=== PATIENT | female | born 1945 | race Caucasian/White ===

== ENCOUNTER 2017-04-21 10:22 | Outpatient (CLI) ==
--- NOTE | 2017-04-21 10:54 | DI ---
EXAM: Three views of the left foot. History: Left foot trauma. Findings: No acute fracture or dislocation. No radiopaque foreign bodies. Moderate degenerate bradley ges are seen at the mid foot with a few prominent dorsal osteophytes. Impression: No acute osseous abnormality
== END 2017-04-21 10:23 | disposition home or self-care (01) ==
LOC: RAD 10:22
PROVIDERS: ATTEND Family Medicine
DX: M79.672 Pain in left foot (principal)

== ENCOUNTER 2017-08-22 09:56 | Outpatient (CLI) ==
--- NOTE | 2017-08-22 13:42 | DI ---
EXAM: Lumbar spine three views HISTORY: Right-sided sciatica. FINDINGS: No comparison. Bone density appears diffusely decreased. There is mild scoliosis convex t o the left. Sacroiliac joints are within normal limits. There is moderate to severe degenerative di sc and facet disease most noted mid spine through S1. No spondylolisthesis or loss of vertebral body height. No acute fracture is seen. Vascular calcifications are noted. IMPRESSION: Diffuse moderate to severe degenerative changes of the spine. Sacroiliac joints proper are grossly w ithin normal limits.
--- NOTE | 2017-08-22 13:46 | DI ---
EXAM: RIGHT HIP, 2 VIEWS HISTORY: Sciatica, right side FINDINGS: There is moderate hip osteoarthritis. The current exam suggests some degree of osteoarthr itis of the lower synovial portion of the right sacroiliac joint. Bone density appears diffusely dec reased. No fracture or dislocation. IMPRESSION: Moderate hip osteoarthritis. Early arthropathy of the right sacroiliac joint.
--- NOTE | 2017-08-22 13:46 | DI ---
Exam: Single x-ray of the pelvis. Comparison: None available. Reason for exam: Sciatica. FINDINGS: The pelvic ring appears intact. No acute fracture or dislocation is seen in either hip. T here is moderate degenerative disease in both hips with joint space narrowing and osteophyte formatio n. Impression: 1. No acute fracture or dislocation is seen in the pelvic ring or either hip. 2. Moderate degenerative disease bilaterally with osteophyte formation and joint space narrowing
== END 2017-08-22 09:57 | disposition home or self-care (01) ==
LOC: RAD 09:56
PROVIDERS: ATTEND Family Medicine
DX: M76.891 Other specified enthesopathies of right lower limb, excluding foot (principal); M54.31 Sciatica, right side

== ENCOUNTER 2017-09-22 12:56 | Outpatient (CLI) ==
--- NOTE | 2017-09-23 10:03 | MRI ---
EXAM: MRI lumbar spine without IV contrast. DATE: 09/22/2017. HISTORY: Low back pain with right-sided sciatica. TECHNIQUE: Sagittal and axial T1W and T2W sequences of the lumbar spine along with sagittal IR and c oronal T2W sequences were obtained using 1.2 Susan magnet. No IV contrast. COMPARISON: LS spine series 08/22/2017. Bilateral renal ultrasound 08 November 2015. FINDINGS: There are five hei-xek-[id number] lumbar vertebra. Mild leftward curvature of the lower thor acic and lumbar spine is present. Tamzgypn-[id number] osteophytes are visible throughout the lower tho racic and lumbar spine. A 3 mm left lateral subluxation of L4 relative to L5 is noted. The no other subluxation, acute fracture, focal malignancy, or pars interarticularis defect is demonstrated. T1W bone marrow signal is similar to that of the intervertebral discs and paraspinal muscles. T2W/IR consuelo ne marrow signal is darker than typically seen. T2W/T1W bright, 6 mm focus in the T11 vertebral body is likely benign hemangioma. Marked L3-4, marked L4-5, and mild L5-S1 disc space narrowing is detec amina. No acute sacral fracture or stress reaction is apparent. Small anterior osteophytes are visibl e at each SI joint. Conus medullaris terminates at T12-L1. Visible spinal cord is normal. A T2W/T1W intermediate signal, the 14 x 10 mm right retrocrural focus is identified on the axial imag e #1. A left periaortic lymph node measuring 13 x 15 mm is observed on image #16. Bilateral obturat or chain lymphadenopathy is evident, with conglomerate lymph node mass measuring approximately 3 x 2. 4 cm near the right common iliac artery just t below the aortic bifurcation. Marked right hydronephr osis and marked right hydroureter along with mild/moderate left hydronephrosis and mild left hydroure ter are observed. There is questionable right-sided bladder wall thickening. T2W bright, T1W dark, 14 mm lesion in the posterior cortex upper pole left kidney is likely a simple cyst, but not fully ch aracterized. Visible portions of the liver, spleen, gallbladder, and right adrenal gland reveal no d istinct abnormality. The left adrenal body and medial limb for normal in diameter. No definitive consuelo wel obstruction or malignancy is seen. The endometrial stripe is 17 mm diameter, with T2W/T1W bright signal in the endometrial cavity suggestive of blood. Atherosclerotic plaques are present in the ao rtic wall. Segmental analysis: T11-12: Sagittal images reveal small posterior disc bulge and mild facet arthropathy causing minor/m ild bilateral foraminal stenoses. No central canal stenosis. 12 - L1: No disc protrusion, central stenosis or foraminal stenosis. L1-2: Small posterior disc bulge and minor facet disease do not cause central stenosis or foraminal stenosis. L2-3: Small/moderate posterior disc bulge, mild bilateral facet arthropathy, and mild ligamentum fla vum hypertrophy cause mild central canal stenosis. Each foramen is patent. L3-4: Small/moderate concentric disc bulge, mild bilateral facet arthropathy, and mild ligamentum fl avum hypertrophy cause minor bilateral foraminal narrowing. No central canal stenosis. L4-5: Moderate concentric disc bulge, moderate facet arthropathy, and minor ligamentum flavum hypert rophy cause mild central canal stenosis and mild bilateral foraminal stenoses. Right L4 nerve root c ontacts the disc bulge near the lateral margin of the foramen. L5-S1: Normal, except for mild bilateral facet arthropathy. IMPRESSIONS: 1. Abnormal bone marrow signal - - DDX: Myelofibrosis, Red marrow hyperplasia / red marrow reconvers ion, other tumor infiltrative process. Correlation for anemia recommended. Bone marrow biopsy may b e necessary to confirm a diagnosis. 2. Retroperitoneal lymphadenopathy - etiology uncertain. Recommend CT scan or MRI without/with IV c ontrast for further evaluation. 3. Bilateral hydronephrosis (marked right, mild/moderate left) and bilateral hydroureter (marked rig ht, mild left). Possible thickening of the urinary bladder wall (right side). Recommend CT scan or MRI without/with IV contrast for further evaluation. 4. Lumbar spine mild levoscoliosis, moderate spondylosis, moderate facet arthropathy, and multilevel DDD. 5. Mild central canal stenoses at L2-3 and L4-5. 6. Multilevel foraminal stenoses (minor/mild). The right L4 nerve root contacts disc bulge near the lateral margin of the foramen, and could be a source for pain/radiculopathy. 7. Benign hemangioma in the T11 body. 8. Left kidney probable benign cortical cyst - not fully characterized. 9. Left adrenal fullness - normal variation vs hyperplasia vs adenoma. 10. Marked abdominal aortic atherosclerosis. 11. Dilated endometrial cavity containing T1W bright signal (likely blood). Recommend US or MRI for further evaluation. Critical result: Findings discussed with Dr. Carmen at 0949 hrs, 09/23/2017.
== END 2017-09-22 12:57 | disposition home or self-care (01) ==
LOC: RAD 12:56
PROVIDERS: ATTEND Family Medicine
DX: M54.31 Sciatica, right side (principal)

== ENCOUNTER 2018-04-19 17:13 | Outpatient (CLI) | END 2018-04-19 17:34 | disposition short-term general hospital (02) | LOC: AMBL 17:13 | PROVIDERS: ATTEND Emergency Medicine | DX: R41.82 Altered mental status, unspecified (principal); R50.9 Fever, unspecified; R31.9 Hematuria, unspecified; R00.0 Tachycardia, unspecified ==

== ENCOUNTER 2018-05-15 09:53 | Outpatient (CLI) | payer OTHER | END 2018-05-15 09:54 | disposition home or self-care (01) | LOC: NONPT 09:53 | PROVIDERS: ATTEND Family Medicine | DX: N30.00 Acute cystitis without hematuria (principal); G93.40 Encephalopathy, unspecified | CPT/HCPCS: 81001; 87086 ==